=== PATIENT | female | born 1950 | race Caucasian/White ===

== ENCOUNTER → 2020-02-05 13:46 | Outpatient (BNVA) | payer MEDICARE, OTHER, SELFPAY | PROVIDERS: Visit Provider Orthopaedic Surgery | DX: M25.551 Pain in right hip (principal); M25.562 Pain in left knee; M16.0 Bilateral primary osteoarthritis of hip; M17.0 Bilateral primary osteoarthritis of knee | CPT/HCPCS: 73502; 73560; 73565 ==

== ENCOUNTER 2025-02-13 20:16 | Emergency (ER) | payer MEDICARE, SELFPAY ==
[2025-02-13 20:23] VITALS: PULSE 68; RESP 16; TEMP 36.6; O2SAT 99
[2025-02-13 20:26] VITALS: BP 147/63
--- NOTE | 2025-02-13 20:47 | USR_ITS ---
PROCEDURE INFORMATION: Exam: US Duplex Right Lower Extremity Veins, Limited Exam date and time: 02/13/2025 9:28 PM Age: 74 years old Clinical indication: Edema, localized; Lower extremity, bilateral; Additional info: Right-sided calf pain and swelling. Concern for dvt TECHNIQUE: Imaging protocol: Real-time duplex ultrasound of the right extremity with 2-D og[place] scale, color Doppler flow and spectral waveform analysis including responses to compression and other maneuvers (when performed) with image documentation. Limited exam was focused on the right lower extremity veins. COMPARISON: No relevant prior studies available. FINDINGS: Right deep veins: Chronic changes involving the deep venous structures of the right lower extremity (common femoral vein, profunda femoris, superficial femoral vein, popliteal vein, peroneal vein and posterior tibial vein) due to multiple old deep venous thrombosis. However it is compressible and augmentable. No complete occlusion. Superficial veins: Greater saphenous vein at the saphenofemoral junction is patent without thrombus. Soft tissues: Unremarkable. US/[place] [id number] IMPRESSION: Chronic deep venous thrombosis changes involving the deep venous structures of the right lower extremity without evidence of complete occlusion.
[2025-02-13 22:47] LABS: Erythrocyte Sedimentation Rate 17 mm/hr (0-15)
[2025-02-13 22:49] LABS: Basophils # 0.1 10^3/uL (0.0-0.1); Basophils % 1.1 %; Eosinophils # 0.2 10^3/uL (0.0-0.8); Eosinophils % 3.4 %; Hematocrit 41.7 % (36-47); Lymphocytes # 2.4 10^3/uL (0.8-4.8); Lymphocytes % 37.3 %; Mean Corpuscular HGB Conc 32.4 g/dL (30-55); Mean Corpuscular Hemoglobin 29.9 pg (27-33); Mean Corpuscular Volume 92.3 fl (85-98); Mean Platelet Volume 10.7 fL (7.4-10.4); Monocytes # 0.7 10^3/uL (0.2-0.9); Monocytes % 10.2 %; Neutrophils % 47.7 %; Nucleated Red Blood Cells % 0 %; Platelet Count 262 10^3/cmm (157-399); Red Blood Count 4.52 10^6/uL (3.85-5.65); White Blood Count 6.49 10^3/uL (3.29-11.43)
[2025-02-13 23:05] LABS: Alanine Aminotransferase 9 U/L (0-33); Albumin Level 4.2 g/dL (3.5-5.2); Alkaline Phosphatase 138 U/L (35-105); Aspartate Amino Transferase 16 U/L (0-32); Blood Urea Nitrogen 13 mg/dL (8-23); C Reactive Protein 12.2 mg/L (0.0-4.9); Calcium 9.7 mg/dL (8.5-10.5); Carbon Dioxide 25 mmol/L (22-29); Chloride 99 mmol/L (98-107); Creatinine Clr Calc Pharmacy 66.1735; Globulin 3.5 g/dL (1.3-4.6); Glucose 267 mg/dL (65-115); Osmolality Calculated 291 mOsm/kg (285-295); Sodium 136 mmol/L (136-145); Total Bilirubin 0.2 mg/dL (0.15-1.2); Total Protein 7.7 g/dL (6.6-8.7)
[2025-02-13 23:07] LABS: Anion Gap 16.1 (5-19); Potassium 4.1 mmol/L (3.5-5.1)
--- NOTE | 2025-02-14 00:10 | W.ED.EXTPRO ---
HPI - Extremity Problem General: Chief complaint: Extremity Injury, Lower Stated complaint: eleanor garcia checked for blood clot right leg Time Seen by Provider: 02/13/25 23:56 Source: patient Mode of arrival: ambulatory Limitations: no limitations History of Present Illness: 74yo female presents for concern of a blood clot to the right leg. Patient reports she was sent over by her primary care due to right leg swelling. States that she has had some right calf pain and a little bit of redness. Patient reports that she does take Xarelto. Associated symptoms: Deny chest pain or fever(s) Related Data Home Medications ?Medication ?Instructions ?Recorded ?Confirmed amiloride 5 mg-hydrochlorothiazide 1 tab PO DAILY 02/05/20 02/05/20 50 mg tablet amlodipine 5 mg tablet 5 mg PO DAILY 02/05/20 02/05/20 cholecalciferol (vitamin D3) 50 50 mcg PO DAILY 02/05/20 02/05/20 mcg (2,000 unit) capsule clopidogrel 75 mg tablet 75 mg PO DAILY 02/05/20 02/05/20 cyanocobalamin (vitamin B-12) 1,000 mcg PO DAILY 02/05/20 02/05/20 1,000 mcg capsule fluoxetine 20 mg capsule 20 mg PO DAILY 02/05/20 02/05/20 gabapentin 600 mg tablet 600 mg PO DAILY 02/05/20 02/05/20 glipizide 10 mg tablet 10 mg PO DAILY 02/05/20 02/05/20 hydrocodone 5 mg-acetaminophen 325 1 tab PO Q6H PRN 02/05/20 02/05/20 mg tablet (Hobbs) levothyroxine 100 mcg capsule 100 mcg PO DAILY 02/05/20 02/05/20 simvastatin 40 mg tablet 40 mg PO DAILY 02/05/20 02/05/20 Allergies Allergy/AdvReac Type Severity Reaction Status Date / Time duloxetine (From Cymbalta) Allergy Unknown Unknown Verified 02/05/20 13:38 indomethacin (From Indocin) Allergy Unknown Verified 02/05/20 13:38 lisinopril Allergy Unknown Verified 02/05/20 13:38 nitrofurantoin (From Allergy Unknown Verified 02/05/20 13:38 Macrobid) Sulfa (Sulfonamide Allergy Unknown Verified 02/05/20 13:38 Antibiotics) Review of Systems Const: Denies: fever(s), chills or body aches Card: Denies: chest pain Resp: Denies: dyspnea Musc: Reports: extremity swelling (Right leg swelling and discomfort) Sha/Lymph: Reports: easy bruising Physical Exam Const: COMMON NORMALS: no acute distress, patient oriented x3, healthy appearing and alert ORIENTATION/CONSCIOUSNESS: Yes awake OTHER: Patient is sitting upright in a vertical flow recliner in no acute distress. She is able to give history with no difficulty. She is interactive with exam appropriately. Son is at bedside. HENMT: COMMON NORMALS: normocephalic and atraumatic HEAD & SCALP: normocephalic and atraumatic Chest: CHEST: Yes Symmetrical chest wall rise Resp: COMMON NORMALS: normal respiratory effort EFFORT & INSPECTION: Yes able to speak in complete sentences Extremity: OTHER: Mild swelling of the right lower leg. Patient does have full movement with no difficulty. Neuro: COMMON NORMALS: patient oriented x3 and moves all extremities SENSORIUM/ORIENTATION: Yes alert Course Vital Signs: Vital signs: Vital Signs Temperature 97.8 F 02/13/25 20:23 Pulse Rate 68 02/13/25 20:23 Respiratory Rate 16 02/13/25 20:23 Blood Pressure 147/63 02/13/25 20:26 Pulse Oximetry 99 02/13/25 20:23 Oxygen Delivery Me thod Room Air 02/13/25 20:23 MDM - Extremity (Nontraumatic) Medical Decision Making 74yo female presents for concern of a blood clot to the right leg. Patient reports she was sent over by her primary care due to right leg swelling. States that she has had some right calf pain and a little bit of redness. Patient reports that she does take Xarelto. Patient is nontoxic in appearance. Vital signs are stable. Labs and ultrasound obtained while awaiting room placement.No leukocytosis, white blood cell count is 6.49. No indication of anemia, hemoglobin is 13.5. Platelets are noted to be in the normal range of 262. Ultrasound does reveal chronic deep venous thrombus involving the deep venous structures of the right lower extremity without evidence of complete occlusion. Discussed these findings with patient and family. Patient does state that she takes Xarelto. Encourage patient to continue with her Xarelto and begin use of compression socks due to the chronic nature of the thrombus. Encourage patient to contact both primary care and cardiology with updates of her ultrasound. Return precautions provided. Patient states understanding and has no further questions or concerns at this time. Differential Diagnosis Likely superficial thrombophlebitis, lower extremity edema and deep vein thrombosis of lower extremity Medical Records I reviewed the patient's medical records. Lab Data I reviewed the patient's lab results. 02/13/25 22:29 02/13/25 22:29 Radiology Impressions Venous Duplex 02/13/25 20:47 IMPRESSION: Chronic deep venous thrombosis changes involving the deep venous structures of the right lower extremity without evidence of complete occlusion. Laboratory Results WBC 6.49 10^3/uL (3.29-11.43) 02/13/25 22: RBC 4.52 10^6/uL (3.85-5.65) 02/13/25: Hgb 13.50 g/dL (11.27-16.99) 02/13/25 22: Hct 41.7 % (36-47) 02/13/25: MCV 92.3 fl (85-98) 02/13/25 22: MCH 29.9 pg (27-33) 02/13/25 22: MCHC 32.4 g/dL (30-55) 02/13/25: RDW 13.0 % (12.1-15.1) 02/13/25: Plt Count 262 10^3/cmm (157-399) 02/13/25 22: MPV 10.7 fL (7.4-10.4) H 02/13/25: Neut % (Auto) 47.7 % 02/13/25: Lymph % (Auto) 37.3 % 02/13/25 22: [place] % (Auto) 10.2 % 02/13/25: Eos % (Auto) 3.4 % 02/13/25: Baso % (Auto) 1.1 % 02/13/25: Neut # (Auto) 3.10 10^3/uL (1.8-7.7) 02/13/25: Lymph # (Auto) 2.4 10^3/uL (0.8-4.8) 02/13/25: [place] # (Auto) 0.7 10^3/uL (0.2-0.9) 02/13/25 22:29 Eos # (Auto) 0.2 10^3/uL (0.0-0.8) 02/13/25 22: Baso # (Auto) 0.1 10^3/uL (0.0-0.1) 02/13/25 22: Nucleated RBC % (auto) 0 % 02/13/25: Nucleated RBCs # 0.0 /100WBC 02/13/25 22: ESR 17 mm/hr (0-15) H 02/13/25 22: Sodium 136 mmol/L (136-145) 02/13/25 22: Potassium 4.1 mmol/L (3.5-5.1) 02/13/25: Chloride 99 mmol/L (98-107) 02/13/25: Carbon Dioxide 25 mmol/L (22-29) 02/13/25: Anion Gap 16.1 (5-19) 02/13/25: BUN 13 mg/dL (8-23) 02/13/25 22: Creatinine 0.9 mg/dL (0.5-0.9) 02/13/25 22: GFR Calculation Not Reportable 02/13/25: Glucose 267 mg/dL (65-115) H 02/13/25: Calculated Osmolality 291 mOsm/kg (285-295) 02/13/25: Calcium 9.7 mg/dL (8.5-10.5) 02/13/25: Total Bilirubin 0.2 mg/dL (0.15-1.2) 02/13/25 22: AST 16 U/L (0-32) 02/13/25 22: ALT 9 U/L (0-33) 02/13/25 22: Alkaline Phosphatase 138 U/L (35-105) H 02/13/25 22: C-Reactive Protein 12.2 mg/L (0.0-4.9) H 02/13/25: Total Protein 7.7 g/dL (6.6-8.7) 02/13/25: Albumin 4.2 g/dL (3.5-5.2) 02/13/25 22:29 Globulin 3.5 g/dL (1.3-4.6) 02/13/25 22:29 All radiology interpretation(s) finalized by discharge Discharge Plan Discharge Patient Disposition: Home Clinical Impression: Chronic deep vein thrombosis (DVT) Qualifiers: DVT location: lower extremity Affected thrombotic vein of extremity: unspecified lower extremity distal vein Laterality: right Qualified Code(s): I82.5Z1 - Chronic embolism and thrombosis of unspecified deep veins of right distal lower extremity Condition: Stable Prescriptions: No Action amiloride-hydrochlorothiazide 5-50 mg tablet 1 tab PO DAILY amlodipine 5 mg tablet 5 mg PO DAILY cholecalciferol (vitamin D3) 50 mcg (2,000 unit) capsule 50 mcg PO DAILY clopidogrel 75 mg tablet 75 mg PO DAILY cyanocobalamin (vitamin B-12) 1,000 mcg capsule 1,000 mcg PO DAILY fluoxetine 20 mg capsule 20 mg PO DAILY gabapentin 600 mg tablet 600 mg PO DAILY glipizide 10 mg tablet 10 mg PO DAILY hydrocodone-acetaminophen [Hobbs] 5-325 mg tablet 1 tab PO Q6H PRN levothyroxine 100 mcg capsule 100 mcg PO DAILY simvastatin 40 mg tablet 40 mg PO DAILY Discharge Orders: Discharge ED (Routine); Ordered 02/14/25 Ordered By: Oscar Pena Activity Restrictions/Additional Instructions: The venous ultrasound of your right leg did show as follows: Chronic changes involving the deep venous structures of the right lower extremity (common femoral vein, profunda femoris, superficial femoral vein, popliteal vein, peroneal vein and posterior tibial vein) due to multiple old deep venous thrombosis. However it is compressible and augmentable. No complete occlusion. For chronic DVTs, initial treatment is with compression socks. Continue with your previously prescribed Xarelto. Please follow-up with primary care and cardiology, call with updates of the ultrasound and to discuss treatment. Return to the emergency department if any rapid worsening symptoms and as needed Print Language: Latvian Coding Level of Care Code ED [employer] for [facility]
[2025-02-14 00:38] VITALS: BP 145/75; PULSE 56; RESP 17; O2SAT 97
== END 2025-02-14 00:34 | disposition home or self-care (01) ==
PROVIDERS: Emergency Medicine; Emergency Provider Nurse Practitioner
DX: I82.5Z1 Chronic embolism and thrombosis of unspecified deep veins of right distal lower extremity (principal); Z79.02 Long term (current) use of antithrombotics/antiplatelets
CPT/HCPCS: 80053; 85025; 85651; 86140; 93971; 99284